=== PATIENT | male | born 1960 | race Caucasian/White ===

== ENCOUNTER → 2020-09-29 12:43 | Outpatient (CLI) | payer OTHER, SELFPAY ==
--- NOTE | ~2020-09-29 | CT_ITS ---
EXAMINATION: CT abdomen pelvis wo/w con DATE: 09/29/2020 13:15 INDICATION: Neoplasm of uncertain behavior of the left kidney TECHNIQUE: Computed tomography (CT) of the abdomen was performed without intravenous contrast. CT of the abdomen and pelvis was then performed with a total of 100 mL Omnipaque 350 intravenous contrast. The dose-length product (DLP) was 1140.32 mGy-cm. Automated exposure control and iterative reconstruc tion technique were employed. COMPARISON: None FINDINGS: Minimal dependent atelectasis is present in the lung bases. The heart size is normal. The l iver, spleen, pancreas, and adrenal glands are normal. Stones are present in the nondistended gallbla dder. Punctate nonobstructing stones of the kidneys measure up to 2 mm on the right. 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 There is a 4.7 x 3.2 cm exophytic cyst with thi n internal septation and a small amount of layering dependent hemorrhage in the left kidney. There ar e additional smaller simple and proteinaceous cysts of the kidneys. No suspicious kidney mass is iden tified. No pathologically enlarged abdominal or pelvic lymph nodes are identified. There is no free i ntraperitoneal gas or evidence of bowel obstruction. Changes of left inguinal hernia repair are noted . There are fat-containing umbilical and periumbilical hernias. IMPRESSION: 1. Right kidney lesion consistent with an angiomyolipoma, Bosniak II cystic lesion of the left kidney , and multiple smaller proteinaceous and hemorrhagic cysts of the kidneys without suspicious kidney m ass identified. 2. Punctate bilateral nephrolithiasis. Reviewed, dictated and finalized at location B. IMPRESSION: 1. Right kidney lesion consistent with an angiomyolipoma, Bosniak II cystic les ion of the left kidney, and multiple smaller proteinaceous and hemorrhagic cyst s of the kidneys without suspicious kidney mass identified. 2. Punctate bilateral nephrolithiasis.
[2020-09-29 13:04] LABS: Estimated Glomerular Filt Rate > 60
== END ==
PROVIDERS: Visit Provider Urology
DX: D41.02 Neoplasm of uncertain behavior of left kidney (principal); N20.0 Calculus of kidney
CPT/HCPCS: 74178; Q9967

== ENCOUNTER 2023-02-21 07:46 | Outpatient (CLI) | payer BC, SELFPAY ==
--- NOTE | 2023-02-21 | ECG_ITS ---
Measurements Intervals [place] Rate: 72 P: 73 NC: 169 QRS: 68 QRSD: 99 T: 58 QT: 399 QTc: 439 Interpretive Statements SINUS RHYTHM INCOMPLETE RIGHT BUNDLE BRANCH BLOCK BORDERLINE ECG NO PREVIOUS ECG AVAILABLE FOR COMPARISON Electronically Signed On 02-21-2023 10:35:33 EDUCATION ASSISTANT by Guilherme Edgar D.O.
== END 2023-02-21 07:47 | disposition home or self-care (01) ==
LOC: ANHCARD 07:51
PROVIDERS: PCP Internal Medicine; Visit Provider Anesthesiology
DX: E78.5 Hyperlipidemia, unspecified (principal); I10 Essential (primary) hypertension; I45.10 Unspecified right bundle-branch block
CPT/HCPCS: 93005

== ENCOUNTER 2023-02-27 02:08 | Day surgery (SDC) | payer BC, SELFPAY ==
[2023-02-18 15:55] VITALS: BMI 27.8
--- NOTE | 2023-02-18 16:01 | PC.NURSE ---
Report to the Outpatient Waiting Room, entrance under the green pavilion located off [facility], at time 6:30 on date 02/27/23. Planned Procedure Time: 8:30. Time changes happen often and if your time is changed the preop area will call you the afternoon before. - You and your visitor will be asked to self-screen and do not enter if you have any COVID symptoms. - A mask is optional within the hospital at this time. Patients may have clear liquids (water, carbonated beverages, clear teas, apple juice) until 3 hours prior to surgery (5:30) with a maximum of 20 ounces. - No food from midnight until time of surgery Take the following medications with a SIP of water the morning of surgery: AMLODIPINE DO NOT STOP ANY OF YOUR OTHER PRESCRIPTION MEDICATIONS PRIOR TO SURGERY ?EXCEPT THE FOLLOWING Medications to discontinue per physician: N/A Date to take last dose: N/A Please no make-up, nail urdu, hairspray, perfume, deodorant, or body powder the day of surgery. No jewelry (including any body piercings) or valuables the day of surgery, leave them at home. Please take a shower or bath the night before, or the morning of, surgery with an antibacterial soap. Wear comfortable, loose fitting clothing. - Jewelry must be removed prior to entering the operating room. Rings and piercings that are not removed may be cut off. - The hospital will not accept responsibility for valuables. - Please leave all valuables, including medications, at home the day of surgery. If you are going home after surgery, a licensed sales driver must drive you home. - NO public transportation without another adult if you receive anesthesia. - We recommend that an adult stay with you for 24 hours following discharge. - We also recommend that you do not drive, make important decision, drink alcoholic beverages, or take any drugs that were not prescribed by your health care provider for at least 24 hours after your discharge time. Follow any additional instructions given to you from your surgeon. If you or anyone in your household have experienced Covid symptoms in the past week, please notify your surgeon or the nurse liaison at the phone number below for possible testing. Telephone instructions given to PT - JANI HAWKINS and asked if any additional questions and then verbalized understanding. Patient advised to call surgeon office or pre surgery nurse liaison [phone] if any additional questions.
--- NOTE | 2023-02-25 07:34 | P.HP_ITS ---
History of Present Illness History of Present Illness Consent: Risks, benefits, and alternatives have been discussed and questions answered. Patient agrees to proceed with procedure. Chief complaint: right renal pelvic filling defect Narrative: Miguel Carroll is a 62 year old male who is known to have a right angiomyolipoma. In routine surveillance imaging we found not only that the angiomyolipoma had grown in size but he also had a suggestion of a enhancing filling defect right renal pelvis/ proximal ureter. The we had considered Harjeet infarction of the angiomyolipoma we 1st will plan cystoscopy with right ureteroscopy with possible biopsy, retrograde pyelography and stent placement. patient is aware the risks including, but not limited to, hematuria, ureteral injury, need for stent placement and need for additional intervention. Review of Systems Cardiovascular: Cardiovascular: Denies chest pain, Denies lightheadedness, Denies palpitations and Denies dyspnea Respiratory: Respiratory: Denies dyspnea Gastrointestinal: Gastrointestinal: Denies diarrhea, Denies nausea and Denies vomiting Genitourinary: Genitourinary: Denies hematuria and Denies dysuria Endocrine: Endocrine: Denies palpitations [facility] Social History Social History Smoking status: Never smoker Alcohol intake: never Substance use: never Substance use type: does not use Living arrangements: with family Spiritual care concerns: No Meds Home Medications and Allergies Home Medications Medication Instructions Recorded Confirmed Type amlodipine 5 mg tablet 5 mg PO DAILY 02/18/23 02/18/23 History clobetasol 0.05 % topical cream 1 applic topical DAILY PRN SKIN 02/18/23 02/18/23 History PROBLEMS fenofibrate nanocrystallized 145 145 mg PO DAILY 02/18/23 02/18/23 History mg tablet loratadine 10 mg tablet (Claritin) 10 mg PO DAILY 02/18/23 02/18/23 History rosuvastatin 10 mg tablet 10 mg PO DAILY 02/18/23 02/18/23 History Allergies Allergy/AdvReac Type Severity Reaction Status Date / Time No Known Allergies Allergy Verified 02/18/23 15:53 Exam Const: General: no acute distress Resp: Effort & Inspection: normal respiratory effort GI: Inspection: non-distended GI Palp: No abdominal tenderness and No Guarding due to palpation present (GI) Auscultation: normal bowel sounds Assessment and Plan Assessment and plan (1) Angiomyolipoma of right kidney: Code(s): D17.71 - Benign lipomatous neoplasm of kidney Status: Acute (2) Ureter filling defect: Code(s): R93.41 - Abnormal radiologic findings on diagnostic imaging of renal pelvis, ureter, or bladder Status: Acute Assessment and Plan: * Cystoscopy with right retrograde pyelography, right ureteroscopy with possible biopsy and stent placement
[2023-02-27] VITALS (9 sets, daily range): BP systolic 94–139; BP diastolic 68–85; PULSE 60–75; RESP 10–17; TEMP 36.4–36.8; O2SAT 99–100; BMI 28.7
--- NOTE | ~2023-02-27 | XR_ITS ---
EXAMINATION: XR retrograde pyelogram RT DATE: 02/27/2023 08:47 RETURNER INDICATION: Right-sided retrograde pyelogram TECHNIQUE: 68 fluoroscopic images retrograde pyelogram are submitted for review. 63 seconds of fluoro scopy. FINDINGS: There is normal contrast opacification of the right renal pelvis and ureters without focal filling defect or stricture. IMPRESSION: 1. Unremarkable right retrograde pyelogram.. Correlate with real time procedural findings for detail s. Reviewed, dictated and finalized at location L. RNER IMPRESSION: 1. Unremarkable right retrograde pyelogram.. Correlate with real time procedur al findings for details.
--- NOTE | 2023-02-27 06:30 | WPDHPUPDATE1 ---
History and Physical Update Update Date/Time: 02/27/23 06:30 History and Physical has been reviewed, including an updated exam of the patient. There are NO changes in the patient's condition. Risks, benefits, and alternatives have been discussed and questions answered. Patient agrees to proceed with procedure.
[2023-02-27] MEDS: LACTATED RINGERS 1,000 ML 30 ML IV CONT (07:25)
--- NOTE | 2023-02-27 07:59 | WPDANESEPPF ---
Anes - Initial Pre Proc Eval Procedure: Operation Date: 02/27/23 08:30 Proposed Procedures p Cystoscopy, Right Ureteroscopy, Possible Ureteral Biopsy - Darin Barnes MD Date/Time: 02/27/23 07:59 Surgeon: Darin Barnes MD Pre Op Diagnosis: right renal pelvic filling defect Patient Data Age: 62 Gender: M Height: 1.8 m Weight: 93.5 kg Last Vital Signs Temp 36.8 C 02/27/23 06:45 Pulse 75 02/27/23 06:45 Resp 16 02/27/23 06:45 BP 139/84 02/27/23 06:45 Pulse Ox 100 02/27/23 06:45 O2 Del Method Room Air 02/27/23 06:45 Allergies Allergy/AdvReac Type Severity Reaction Status Date / Time No Known Allergies Allergy Verified 02/27/23 07:38 Home Medications Medication Instructions Recorded Confirmed Type amlodipine 5 mg tablet 5 mg PO DAILY 02/18/23 02/27/23 History clobetasol 0.05 % topical cream 1 applic topical DAILY PRN SKIN 02/18/23 02/18/23 History PROBLEMS fenofibrate nanocrystallized 145 145 mg PO DAILY 02/18/23 02/18/23 History mg tablet loratadine 10 mg tablet (Claritin) 10 mg PO DAILY 02/18/23 02/18/23 History rosuvastatin 10 mg tablet 10 mg PO DAILY 02/18/23 02/18/23 History Patient hx anesthesia problems: none Family hx anesthesia problems: none Results Review: All pre-operative results and documents have been reviewed as part of the pre-operative evaluation. [facility] Social History Social History Smoking status: Never smoker Alcohol intake: never Substance use: never Substance use type: does not use Living arrangements: with family Spiritual care concerns: No Anes - Eval Final PreProcedure Day of Procedure 02/27/23 07:59 Patient weight: overweight Heart: regular rate and rhythm Lungs: clear to auscultation Airway: Mallampati scale class II Neurological: alert and oriented Last oral intake: >/= 8 hours ASA classification: III Emergent: no Anesthetic plan: proceed Anesthesia type and monitoring: general LMA and standard monitoring Results Review: All pre-operative results and documents have been reviewed as part of the pre-operative evaluation. Informed Consent: The patient's anesthetic plan and its attendant risks and benefits were discussed with the patient/family/POA. Questions were solicited and answers provided to the satisfaction of the patient/family/POA.
[2023-02-27] MEDS: ceFAZolin 2 GM/D5W 50 ML 2 GM/50 ML BAG IVPB (08:06)
[2023-02-27] MEDS: LIDOCAINE HCL 2% GEL UROJET 10 ML PKG MUCOUS MEM (08:19)
[2023-02-27] MEDS: KETOROLAC 30 MG/ML VIAL (*BKC) IV PUSH (08:34)
--- NOTE | 2023-02-27 08:51 | W.PM.PROC2 ---
Procedure Note - Detailed Date of Procedure 02/27/23 Pre-op Diagnosis Right renal pelvic filling defect Post-op Diagnosis Other (Normal right renal pelvis and calices) Procedure Performed Cystoscopy, right retrograde pyelography, right ureteroscopy Surgeon Darin Barnes MD Anesthesia General Findings 1. Normal right collecting system including all calices and renal pelvis 2. Normal right ureter and bladder Description of Procedure patient is brought to the operative suite was prepped draped in routine sterile fashion while in dorsal lithotomy position after the uneventful induction of a general LMA anesthetic. Cystoscopy undertaken with a 19 F rigid cystoscope. There was no urethral stricture and minimal prostatic hyperplasia with about a 1.5 cm prostatic urethra. The bladder mucosa was carefully inspected and found to be without hyperemia. There was no intravesical foreign body or checo neoplasm. Urine was collected for cytology. Is a single orthotopic ureteral orifice bilaterally. An 8 F ball-tip catheter was used to obtain a right retrograde pyelogram. There was no points of obstruction or apparent filling defects throughout the ureter right collecting system. Did place a 0.035 in glidewire and dilated the distal ureter with an 8 F 10 F dilator. Careful ureteral re-endoscopy was undertaken with a 7.5 F digital flexible ureteral scope. All calices were carefully identified appeared to be perfectly normal without any mucosal hyperemia or checo neoplasm. The renal pelvis was likewise normal as was the entire right ureter. Scopes and wires removed and he was taken recovery room condition
--- NOTE | 2023-02-27 09:24 | SUR.PHASEI ---
0920: Simple mask removed.
== END 2023-02-27 10:32 | disposition home or self-care (01) ==
PROVIDERS: PCP Internal Medicine; Visit Provider Urology
PROC: (CPT 52352; principal; 2023-02-27 08:30)
DX: D17.71 Benign lipomatous neoplasm of kidney (principal); R93.41 Abnormal radiologic findings on diagnostic imaging of renal pelvis, ureter, or bladder
CPT/HCPCS: 52351; 74420; 88108; C1758; C1769; J0690; J1100; J1885; J2405; J2704; J7120; Q9966